=== PATIENT | male | born 1995 | race Caucasian/White ===

== ENCOUNTER 2016-12-28 09:31 | Emergency (ER) | payer SELFPAY ==
[~2016-12-28] VITALS: Wt 80.0 kg
[2016-12-28 10:21] LABS: ADD SCAN DIFF NO
--- NOTE | 2016-12-28 10:32 | RADRPT ---
PROCEDURE: CT Brain without. CLINICAL INDICATION: Syncope TECHNIQUE: A CT of the brain was performed on a multi-slice CT scanner utilizing axial sections fr om the skull base through the vertex without contrast. Coronal and sagittal reconstructed images w ere provided. One or more of the following does reduction techniques were used: Automated exposure control; adjustment of the mA and/or kV according to patient size; use of the aorta of reconstructi on technique. Images were reviewed on a high-resolution PACS workstation. The exam CTDI = 40.8 mGy. The exam DLP = 630.2 mGy-cm. COMPARISON: None available FINDINGS: The ventricles and sulci are symmetric and normal in size and morphology. There is no evidence of i ntracranial hemorrhage, mass effect, edema or midline shift. No abnormal intra-axial or extra-axial fluid collections are seen. The lopez/white matter differentiation is well preserved. The osseous structures and visualized sinuses are unremarkable. The mastoid air cells are clear. Th e surrounding soft tissue scalp and bony calvarium are intact and normal. IMPRESSION: 1. Unremarkable CT brain. RPTAT: KK .Antwan Hairston MD, MD Date Time Electronically viewed and signed by .Antwan Hairston MD, MD on 12/28/2016 10:32 .B/
[2016-12-28 10:43] LABS: ANION GAP 18 (8-16); BLOOD UREA NITROGEN 13 mg/dl (7-20); CALCIUM 9.9 mg/dl (8.4-10.2); CARBON DIOXIDE 25 mmol/L (21-31); CHLORIDE 98 mmol/L (97-110); ETHANOL < 10.0 mg/dl; GLUCOSE 108 mg/dl (70-220); POTASSIUM 3.5 mmol/L (3.5-5.1); SODIUM 137 mmol/L (135-144)
[2016-12-28 10:46] LABS: OPIATES Positive (NEGATIVE)
[2016-12-28 10:50] LABS: BARBITURATES Negative (NEGATIVE); BENZODIAZEPINES Negative (NEGATIVE); CANNABINOIDS Positive (NEGATIVE); COCAINE Negative (NEGATIVE)
[2016-12-28 10:57] LABS: TROPONIN-I < 0.012 ng/ml (0.00-0.12)
[2016-12-28 11:08] LABS: BASOPHILS % 0.2 % (0.0-2.0); EOSINOPHILS % 0.1 % (0.0-7.0); HEMOGLOBIN 16.5 g/dl (14.0-18.0); LYMPHOCYTES # 1.7 10^3/ul (0.8-2.9); LYMPHOCYTES % 11.9 % (15.0-51.0); MEAN CORPUSCULAR HGB CONC 35.1 g/dl (32.0-37.0); MEAN CORPUSCULAR VOLUME 88.3 fl (82.0-101.0); MEAN PLATELET VOLUME 11.3 fl (7.4-10.4); MONOCYTE # 0.8 10^3/ul (0.3-0.9); NEUTROPHIL # 11.5 10^3/ul (1.6-7.5); NEUTROPHILS % 81.4 % (39.0-77.0); PLATELET COUNT 190 10^3/UL (140-415); RED BLOOD COUNT 5.32 10^6/ul (4.70-6.10); RED CELL DISTRIBUTION WIDTH 12.3 % (11.5-14.5); WHITE BLOOD COUNT 14.1 10^3/ul (4.8-10.8)
[2016-12-28] MEDS ORDERED: LORAZEPAM 2 MG INJ IV ONE (11:30)
[2016-12-28 12:15] VITALS: BP 144/56; PULSE 95; RESP 19; TEMP 98.8
--- NOTE | 2016-12-28 12:40 | ERD ---
ER Documentation Chief Complaint Date/Time DATE: 12/28/16 TIME: 12:33 Chief Complaint found aloc per staff. no trauma. alert but non verbal. no signs of trauma HPI This 21-year-old male was brought in by a coworker for being found altered and passed out at work. He works at a marijuana dispensary. He is unable to answer questions well initially. He has no known medical problems. No signs of trauma. ROS Unobtainable. Medications Home Meds Unable to Obtain Active Prescriptions or Reported Meds Allergies Allergies: Coded Allergies: Unknown: Unable to obtain (Unverified , 12/28/16) PMhx/Soc Hx Substance Use: Yes Smoking Status: Unknown if ever smoked Physical Exam Vitals Vital Signs Date Time Temp Pulse Resp B/P Pulse Ox O2 Delivery O2 Flow Rate FiO2 12/28/16 10:10 98.8 87 20 135/78 98 Physical Exam Const: [] Head: Atraumatic Eyes: Normal Conjunctiva ENT: Normal External Ears, Nose and Mouth. Neck: Full range of motion..~ No meningismus. Resp: Clear to auscultation bilaterally Cardio: Regular rate and rhythm, no murmurs Abd: Soft, non tender, non distended. Normal bowel sounds Skin: No petechiae or rashes Back: No midline or flank tenderness Ext: No cyanosis, or edema Neur: Awake and alert Psych: Normal Mood and Affect Result Diagram: 12/28/16 1015 12/28/16 1015 Results 24 hrs Laboratory Tests Test 12/28/16 09:38 12/28/16 10:15 Bedside Glucose 98mg/dL White Blood Count 14.110^3/ul Red Blood Count 5.3210^6/ul Hemoglobin 16.5g/dl Hematocrit 47.0% Mean Corpuscular Volume 88.3fl Mean Corpuscular Hemoglobin 31.0pg Mean Corpuscular Hemoglobin Concent 35.1g/dl Red Cell Distribution Width 12.3% Platelet Count 56030^3/UL Mean Platelet Volume 11.3fl Neutrophils % 81.4% Lymphocytes % 11.9% Monocytes % 6.0% Eosinophils % 0.1% Basophils % 0.2% Nucleated Red Blood Cells % 0.0/100WBC Neutrophils # 11.510^3/ul Lymphocytes # 1.710^3/ul Monocytes # 0.810^3/ul Eosinophils # 0.010^3/ul Basophils # 0.010^3/ul Nucleated Red Blood Cells # 0.010^3/ul Sodium Level 137mmol/L Potassium Level 3.5mmol/L Chloride Level 98mmol/L Carbon Dioxide Level 25mmol/L Anion Gap 18 Blood Urea Nitrogen 13mg/dl Creatinine 0.90mg/dl Glucose Level 108mg/dl Calcium Level 9.9mg/dl Troponin I < 0.012ng/ml Urine Opiates Screen Positive Urine Barbiturates Negative Urine Amphetamines Screen Negative Urine Benzodiazepines Screen Negative Urine Cocaine Screen Negative Urine Cannabinoids Positive Ethyl Alcohol Level < 10.0mg/dl Current Medications Medications (Trade) Dose Ordered Sig/Jose Route PRN Reason Start Time Stop Time Status Last Admin Dose Admin Lorazepam (Ativan) 2 mg ONCE ONCE IV 12/28/16 11:30 12/28/16 11:31 DC 12/28/16 11:30 Procedures/MDM Patient with decreased mental status secondary to multidrug intoxication. Patient was initially very altered. He was monitored in the emergency room for more than 2 hours. He received 2 mg of Ativan. Workup was otherwise negative. Patient was completely alert and oriented talking well, reasonable and intelligent, and able to confirm that he did indeed use marijuana and opiates. He is feeling well now. He had mild leukocytosis and workup was otherwise negative. He has no signs or symptoms of infection. I have low suspicion for acute coronary syndrome or cardiac arrhythmia causing his syncope. And we will discharge him with strict return precautions as well as primary care follow-up in the next 2-3 days per EKG interpretation: Normal sinus rhythm rate of 83, normal axis, no ST or T- wave changes concerning for acute ischemia. Normal intervals equipment monitor phototypesetting interpretation: Normal sinus rhythm without arrhythmia CT brain interpretation: I see no acute process. I see no hemorrhage no mass- effect no midline shift no skull fracture. Departure Diagnosis: Primary Impression: Marijuana intoxication Additional Impressions: Syncope Altered mental status Condition: Stable Patient Instructions: Causes of Syncope Referrals: COMMUNITY CLINICS YOU HAVE RECEIVED A MEDICAL SCREENING EXAM AND THE RESULTS INDICATE THAT YOU DO NOT HAVE A CONDITION THAT REQUIRES URGENT TREATMENT IN THE EMERGENCY DEPARTMENT. FURTHER EVALUATION AND TREATMENT OF YOUR CONDITION CAN WAIT UNTIL YOU ARE SEEN IN YOUR DOCTORS OFFICE WITHIN THE NEXT 1-2 DAYS. IT IS YOUR RESPONSIBILITY TO MAKE AN APPOINTMENT FOR FOLOW-UP CARE. IF YOU HAVE A PRIMARY DOCTOR --you should call your primary doctor and schedule an appointment IF YOU DO NOT HAVE A PRIMARY DOCTOR YOU CAN CALL OUR PHYSICIAN REFERRAL HOTLINE AT IF YOU CAN NOT AFFORD TO SEE A PHYSICIAN YOU CAN CHOSE FROM THE FOLLOWING [facility] [address] [facility] [address] [facility] [address] [facility] [address] [facility] [address] [facility]. [facility]. [address] Additional Instructions: Call your primary care doctor TOMORROW for an appointment during the next 2-3 days.See the doctor sooner or return here if your condition worsens before your appointment time. GIANLUCA MORILLO DO Dec 28, 2016 12:39
--- NOTE | 2016-12-28 19:03 | PSY ---
Date/Time of Note Date/Time of Note DATE: 12/28/16 TIME: 18:56 Psychiatric Subjective Eval Subjective Evaluation Chief Complaint: found aloc per staff. no trauma. alert but non verbal. no signs of trauma Reason for consult: Psychiatric evaluation History of present illness Pt was reportedly using a lot of drugs. His friends brought him to the ER. He left AMA. However, his friends brought him back. He has been non-verbal at time. However, now he is willing to talk. Pt reports he "democrat casper" too much on the 25 of December. When asked about depression and other psychiatric symptoms, he rambles on but does not really answer the question. He is very vague with details and appears to be thought blocking at time. When I asked about suicidal ideation, there was a long pause. He later said "not in that way." However, I was not able to get him to clarify any comments. Past psychiatric history He has seen a psychiatrist, but not seen a psychiatrist... Family History Unknown Medical history Problems Medical Problems: (1) Altered mental status Status: Acute (2) Depression with suicidal ideation Status: Acute (3) Marijuana intoxication Status: Acute (4) Polysubstance abuse Status: Acute (5) Syncope Status: Acute Allergies: Coded Allergies: No Known Allergy (Unverified , 12/28/16) Substance Abuse Substance abuse history: Yes Social History Marital status: single Level of education: Unknown DPA/Conservatorship: No Occupation/Residential: Unknown Psychiatric Objective Eval Mental Status Examination: Appearance: Groomed Eye Contact: Good Psychomotor Activity: Normal Behavior: Friendly Speech: Disorganized (vauge) AFFECT: Appropriate Mood: Anxious Though Process: Tangential Thought Content: Normal Homicidal: No On 72 hour hold: No Orientation: x3 Cognition: Alert Insight: Impared Judgement: Impared Laboratory Results Laboratory Tests Test 12/28/16 09:38 12/28/16 10:15 Bedside Glucose 98mg/dL White Blood Count 14.110^3/ul Red Blood Count 5.3210^6/ul Hemoglobin 16.5g/dl Hematocrit 47.0% Mean Corpuscular Volume 88.3fl Mean Corpuscular Hemoglobin 31.0pg Mean Corpuscular Hemoglobin Concent 35.1g/dl Red Cell Distribution Width 12.3% Platelet Count 69295^3/UL Mean Platelet Volume 11.3fl Neutrophils % 81.4% Lymphocytes % 11.9% Monocytes % 6.0% Eosinophils % 0.1% Basophils % 0.2% Nucleated Red Blood Cells % 0.0/100WBC Neutrophils # 11.510^3/ul Lymphocytes # 1.710^3/ul Monocytes # 0.810^3/ul Eosinophils # 0.010^3/ul Basophils # 0.010^3/ul Nucleated Red Blood Cells # 0.010^3/ul Sodium Level 137mmol/L Potassium Level 3.5mmol/L Chloride Level 98mmol/L Carbon Dioxide Level 25mmol/L Anion Gap 18 Blood Urea Nitrogen 13mg/dl Creatinine 0.90mg/dl Glucose Level 108mg/dl Calcium Level 9.9mg/dl Troponin I < 0.012ng/ml Urine Opiates Screen Positive Urine Barbiturates Negative Urine Amphetamines Screen Negative Urine Benzodiazepines Screen Negative Urine Cocaine Screen Negative Urine Cannabinoids Positive Ethyl Alcohol Level < 10.0mg/dl Assessment and Plan Assessment/Diagnosis [place] I: Affective Disorder, Unspecified; Substance Use Disorder Recommendation/Plan Medication Management Per inpatient psychiatry Psychotherapy N/A Pt. Caregiver/Family Education N/A Follow-up/Disposition Pt remains altered. Possibly secondary to drug use. However, unclear if depression, anxiety or some other psychiatric disorder is present. He is very vague. Given his friends have brought him to the ER twice today, I would like to presume that patient is not currently able to function as per usual AND hospitalization and stabilization is prudent. Would place on hold for DTS ( excessive drug use without clear intent, may be suicidal in nature) and gravely disabled (is not able to formulate a plan for his own self care). 5150 Recommendation: Place Hold TRAM GROVER Dec 28, 2016 19:02
== END 2016-12-28 12:50 | disposition home or self-care (01) ==
LOC: E/R 09:31
DX: F12.10 Cannabis abuse, uncomplicated (principal); R55 Syncope and collapse; R41.82 Altered mental status, unspecified
CPT/HCPCS: 36415; 70450; 80048; 80306; 80307; 82962; 84484; 85025; 96374; 99285; J2060; P9612; 93005

== ENCOUNTER 2016-12-28 17:26 | Emergency (ER) | payer BC ==
[~2016-12-28] VITALS: Ht 180.3 cm; Wt 76.0 kg
[2016-12-28 17:50] VITALS: Ht 180.3 cm; Wt 76.0 kg
--- NOTE | 2016-12-28 18:21 | ERA ---
ER Documentation Chief Complaint Date/Time DATE: 12/28/16 TIME: 18:19 Chief Complaint left AMA today, wants further treatment HPI 21-year-old male history of polysubstance abuse who is having increasing depressed thoughts. He is brought here by his roommate. He was seen earlier today for polysubstance abuse had a CAT scan and was discharged. It appears the patient has been using marijuana, alcohol, methamphetamine at an increased frequency. He is having depressed thoughts with thoughts of suicide, no active plan. His roommate is concerned about him and brought him back to the emergency department. He denies any chest pain headache or shortness of breath. ROS All systems reviewed and are negative except as per history of present illness. Medications Home Meds Unable to Obtain Active Prescriptions or Reported Meds Allergies Allergies: Coded Allergies: No Known Allergy (Unverified , 12/28/16) PMhx/Soc Medical and Surgical Hx: pt denies Medical Hx, pt denies Surgical Hx Hx Substance Use: Yes Smoking Status: Never smoker FmHx Family History: No diabetes Physical Exam Vitals Vital Signs Date Time Temp Pulse Resp B/P Pulse Ox O2 Delivery O2 Flow Rate FiO2 12/28/16 17:50 98.6 107 20 139/78 100 Physical Exam General: Well developed, well nourished, no acute distress Head: Normocephalic, atraumatic. Eyes: Pupils equally reactive, EOM intact ENT: Moist mucous membranes Neck: Supple, no lymphadenopathy Respiratory: Lungs clear bilaterally, no distress Cardiovascular: RRR, no murmurs, rubs, or gallops Abdominal: Soft, non-tender, non-distended, no peritoneal signs : Deferred MSK: No edema, no unilateral swelling, 5/5 strength Neurologic: Alert and oriented, moving all extremities, normal speech, no focal weakness, no cerebellar signs Skin: No rash Psych: Flat affect, depressed mood, suicidal thoughts Procedures/MDM LAB INTERPRETATION: PENDING MEDICAL DECISION MAKING: The patient's presentation is consistent with underlying psychiatric illness and likely exacerbation of this illness and/or psychosis. I have a much lower clinical concern for delirium or acute organic pathology such as toxicologic, metabolic, ischemic, intracranial hemorrhage, infectious process. However, we must rule this out prior to relying a diagnosis of underlying psychiatric illness. The patient's workup will include medical screening examination, laboratory analysis, and diagnostic imaging such as EKG, chest x-ray or CT brain as indicated. If the patient's medical examination and laboratory analysis do not reveal acute organic pathology the patient will be medically cleared for psychiatric evaluation. ER COURSE: The patient's laboratory analysis, diagnostic imaging do not suggest an acute organic pathology. At this time I believe the patient's presentation is very consistent with underlying psychiatric illness. The patient is medically cleared for psychiatric evaluation. I kept the patient and/or family informed of laboratory and diagnostic imaging results throughout the emergency room course. CONSULTATION: Psychiatric consultation: Telemetry medicine psychiatry has been consulted on this case to evaluate the patient for possible acute psychiatric illness that would require inpatient hospitalization. DISPOSITION PLAN: Pending telemetry medicine psychiatry evaluation Departure Diagnosis: Primary Impression: Polysubstance abuse Additional Impression: Depression with suicidal ideation Condition: ALESSANDRA Henriquez MD Dec 28, 2016 18:20
[2016-12-28 18:33] LABS: ADD SCAN DIFF NO
[2016-12-28 18:36] LABS: ABNORMAL IP MESSAGE 1; BASOPHIL # 0.1 10^3/ul (0.0-0.1); BASOPHILS % 0.3 % (0.0-2.0); EOSINOPHILS % 0.1 % (0.0-7.0); HEMATOCRIT 46.9 % (42.0-52.0); HEMOGLOBIN 16.7 g/dl (14.0-18.0); LYMPHOCYTES # 2.5 10^3/ul (0.8-2.9); LYMPHOCYTES % 12.1 % (15.0-51.0); MEAN CORPUSCULAR HEMOGLOBIN 31.2 pg (29.0-33.0); MEAN CORPUSCULAR HGB CONC 35.6 g/dl (32.0-37.0); MEAN CORPUSCULAR VOLUME 87.5 fl (82.0-101.0); MEAN PLATELET VOLUME 10.8 fl (7.4-10.4); MONOCYTE # 1.8 10^3/ul (0.3-0.9); MONOCYTES % 8.4 % (0.0-11.0); NEUTROPHIL # 16.4 10^3/ul (1.6-7.5); NEUTROPHILS % 78.6 % (39.0-77.0); PLATELET COUNT 197 10^3/UL (140-415); RED BLOOD COUNT 5.36 10^6/ul (4.70-6.10); RED CELL DISTRIBUTION WIDTH 12.3 % (11.5-14.5); WHITE BLOOD COUNT 20.8 10^3/ul (4.8-10.8)
[2016-12-28 18:55] LABS: ALANINE AMINOTRANSFERASE 33 IU/L (13-69); ALBUMIN 5.4 g/dl (3.3-4.9); ALBUMIN/GLOBULIN RATIO 1.38; ALKALINE PHOSPHATASE 72 IU/L (42-121); ANION GAP 20 (8-16); ASPARTATE AMINO TRANSFERASE 33 IU/L (15-46); BILIRUBIN,INDIRECT 1.2 mg/dl (0-1.1); BILIRUBIN,TOTAL 1.2 mg/dl (0.2-1.3); BLOOD UREA NITROGEN 13 mg/dl (7-20); CALCIUM 10.5 mg/dl (8.4-10.2); CARBON DIOXIDE 26 mmol/L (21-31); CHLORIDE 95 mmol/L (97-110); CREATININE 0.86 mg/dl (0.61-1.24); GLUCOSE 99 mg/dl (70-220); POTASSIUM 3.9 mmol/L (3.5-5.1); SODIUM 137 mmol/L (135-144); TOTAL PROTEIN 9.3 g/dl (6.1-8.1)
[2016-12-28 19:15] LABS: ETHANOL < 10.0 mg/dl
[2016-12-28 21:57] LABS: OPIATES Negative (NEGATIVE)
[2016-12-28 21:58] LABS: BARBITURATES Negative (NEGATIVE); BENZODIAZEPINES Negative (NEGATIVE); CANNABINOIDS Positive (NEGATIVE); COCAINE Negative (NEGATIVE)
[2016-12-29 01:16] VITALS: BP 138/71; PULSE 78; RESP 20; TEMP 98.3
== END 2016-12-29 01:23 | disposition short-term general hospital (02) ==
LOC: E/R 17:26
DX: F12.10 Cannabis abuse, uncomplicated (principal); R40.2362 Coma scale, best motor response, obeys commands, at arrival to emergency department; F15.10 Other stimulant abuse, uncomplicated; R45.851 Suicidal ideations; R40.2142 Coma scale, eyes open, spontaneous, at arrival to emergency department
CPT/HCPCS: 36415; 80053; 80306; 80307; 85025; 99285

== ENCOUNTER 2017-11-29 21:31 | Emergency (ER) | END 2017-11-30 01:00 | disposition left against medical advice (07) ==

== ENCOUNTER 2017-11-30 01:51 | Emergency (ER) | END 2017-11-30 03:28 | disposition home or self-care (01) ==